=== PATIENT | male | born 1980 | race Caucasian/White ===

== ENCOUNTER → 2021-10-01 | Outpatient (CLI) | payer OTHER ==
--- NOTE | 2021-10-01 16:12 | KCIC ---
STUDY: MRI of the right knee without contrast INDICATION: Right knee pain. Provided history of previous medial meniscal surgery. COMPARISON: Radiographs from 09/04/2021. TECHNIQUE: Multiplanar MR imaging of the right knee performed without the use of intravenous or intra -articular contrast. FINDINGS: Menisci: Minimal signal heterogeneity along the undersurface of the mid medial meniscal body could be related to the provided history of meniscal surgery. The medial meniscus is intact. Unremarkable lat eral meniscus. Cruciate ligaments: Intact ACL and PCL. Collateral ligaments: Intact medial and lateral collateral ligaments. No retinacular disruption. With in normal limits IT band. Tendons: No tendon tear or significant tendinosis. Cartilage: Patellofemoral: Possible subtle hypointense chondral fissuring at the far inferior trochlear. Patella r cartilage is intact. Lateral compartment: No high-grade chondral defect. Medial compartment: No high-grade chondral defect. Possible mild superficial chondrosis at the inner weightbearing medial femoral condyle and tibial plateau. Bones: No subchondral edema or cystic change. Marrow signal is within normal limits. Normal TT-TG dis tance. Tiny quadriceps insertion enthesophyte seen laterally. Miscellaneous: Very small joint effusion. No significant ganglion cyst. IMPRESSION: 1. Reportedly there has been previous medial meniscal repair which may be evident along the body seg ment. No recurrent medial meniscal tear. The lateral meniscus is intact as are the cruciate and colla teral ligaments. 2. No high-grade or full-thickness chondrosis seen throughout the knee. There may be subtle hypointe nse fissuring along the lower margin of the trochlear groove and minimal superficial chondrosis at th e inner weightbearing aspect of the medial compartment. 3. Very small knee joint effusion. Electronically signed by: ROBERTO CARLOS IRENE MD (10/01/2021 4:10 PM) [id number]
--- NOTE | 2021-10-01 16:26 | KCIC ---
STUDY: MRI of the left knee without contrast INDICATION: Chronic left knee pain. COMPARISON: 09/04/2021 radiographs. TECHNIQUE: Multiplanar MR imaging of the left knee performed without the use of intravenous or intra- articular contrast. FINDINGS: Menisci: The medial and lateral menisci are intact. Cruciate ligaments: Intact ACL and PCL. Collateral ligaments: Intact medial and lateral collateral ligaments. No retinacular disruption. Virgilio a seen tracking along the undersurface of the IT band. Tendons: No tendon tear or significant tendinosis. Cartilage: Patellofemoral: No focal chondral defect. Lateral compartment: No high-grade chondrosis. Medial compartment: Partial thickness chondrosis at the inner margin of the weightbearing medial femo ral condyle and tibial plateau. Bones: No subchondral marrow edema/cystic change. Marrow signal is within normal limits. Normal TT-TG distance. Miscellaneous: Soft tissue fullness at the suprapatellar recess partly interposed between the upper p ole of thin fluid attenuation at the lower margin of the patella and upper aspect of the patellar ten don. The patella and distal femur such as on image 7 series 6. No significant joint effusion. Trace f luid within the medial gastrocnemius-semimembranosus bursa. Mildly prominent but favored reactive pop liteal fossa lymph node measuring just under a centimeter short axis. Mild scattered soft tissue virgilio a such as adjacent to the posteromedial capsule and superficial to the patella. IMPRESSION: 1. No discrete meniscal tear. The cruciate and collateral ligaments are intact. 2. Soft tissue fullness at the suprapatellar recess and partially interposed between the upper kaitlyn n of the patella and the femur potentially related to a thickened plica. Correlate for any associated symptoms of impingement. 3. No high-grade or full-thickness chondral defect. Mild partial thickness chondrosis at the inner w eightbearing medial compartment. 4. Edema tracking along the undersurface of the IT band. This is of uncertain significance given mil d periarticular soft tissue edema elsewhere but IT band syndrome is possible. 5. Mild prepatellar bursitis. Electronically signed by: ROBERTO CARLOS IRENE MD (10/01/2021 4:23 PM) [id number]
== END ==
LOC: KCIC MRI 09:51
PROVIDERS: ATTEND Family Medicine
DX: M25.461 Effusion, right knee (principal); M70.42 Prepatellar bursitis, left knee; M94.262 Chondromalacia, left knee; R60.9 Edema, unspecified; M25.862 Other specified joint disorders, left knee
CPT/HCPCS: 73721